=== PATIENT | male | born 1970 | race Two or more races ===

== ENCOUNTER 2023-06-28 08:15 | Outpatient (OUT) | payer OTHER, SELFPAY ==
--- NOTE | 2023-06-28 | CT_ITS ---
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 TECHNIQUE: Axial, Coronal, and Sagittal images were created without the administration of IV contrast material. Dose reduction techniques were achieved by using automated exposure control and/or adjustment of mA and/or kV according to patient size and/or use of iterative reconstruction technique. FINDINGS: LUNGS: No visible pulmonary disease. PLEURA: No mass, effusion, or pneumothorax. VASCULATURE: No abnormality. ABENA: No mass or pathologic adenopathy. MEDIASTINUM: No mass or pathologic adenopathy. CARDIAC: No enlargement, pericardial thickening, or significant calcification. AORTA: No aneurysm or dissection. CHEST WALL: No mass or axillary adenopathy BONES: No bone lesion or fracture. LIMITED ABDOMEN: No suspicious findings. Limited images of the upper abdomen. OTHER: Negative. CT/CT lung screening low-dose IMPRESSION: 1. Lung-RADS Category 1 Negative. No nodules and definitely benign nodules. Continue annual screening with LDCT in 12 months. Electronically authenticated by: KATY BAEZ Date: 06/30/2023 10:25
== END 2023-06-28 08:16 | disposition home or self-care (01) ==
LOC: CT 08:16
PROVIDERS: Visit Provider Internal Medicine
DX: Z87.891 Personal history of nicotine dependence (principal)
CPT/HCPCS: 71271

== ENCOUNTER 2024-07-10 08:03 | Outpatient (OUT) | payer OTHER, SELFPAY ==
--- NOTE | 2024-07-10 | CT_ITS ---
[address] [address] Patient Name: ALEXANDR CHACON MRN: [id number] date: 1970 Sex: M Assigned Patient Location: CT Current Patient Location: Accession/Order Number: [id number] Exam Date: 07/10/2024 08:10 Report Date: 07/11/2024 07:12 At the request of: PHIL BERGER Procedure: CT lung screening low-dose EXAMINATION: CT lung screening low-dose HISTORY: Nicotine dependent F17.219 COMPARISON: CT lung screening 06/28/2023 TECHNIQUE: Axial, Coronal, and Sagittal images were created without the administration of IV contrast material. Dose reduction techniques were achieved by using automated exposure control and/or adjustment of mA and/or kV according to patient size and/or use of iterative reconstruction technique. FINDINGS: LUNGS: No visible pulmonary disease. PLEURA: No mass, effusion, or pneumothorax. VASCULATURE: No abnormality. AEBNA: No mass or pathologic adenopathy. MEDIASTINUM: No mass or pathologic adenopathy. CARDIAC: No enlargement, pericardial thickening, or pericardial effusion. Coronary Artery calcifications: AORTA: No aneurysm or dissection. CHEST WALL: No mass or axillary adenopathy BONES: No bone lesion or fracture. LIMITED ABDOMEN: No suspicious findings. Limited images of the upper abdomen. OTHER: Negative. CT/CT lung screening low-dose IMPRESSION: 1. Lung-RADS Category 1 Negative. No nodules and definitely benign nodules. Continue annual screening with LDCT in 12 months. Electronically authenticated by: KATY BAEZ Date: 07/11/2024 07:12
--- OUTSIDE RECORDS SUMMARY | 2024-07-10 08:05 | XMS_ITS | CCD ---
Author Organization [facility] Care Team Providers Care Planned Giving Officer Name Role Phone Hari Ugarte Attending Unavailable Alee Waldrop Primary Care Unavailable Hari Ugarte Admitting Unavailable Hari Ugarte Attending Unavailable Alee Waldrop Primary Care Unavailable Alee Waldrop Primary Care Unavailable Jason Almonte Admitting Unavailable Gage, Jason Attending Unavailable ALEE WALDROP Primary Care Physician [phone] RISHI CARDOZO, DR DANIELLE Perkins Admitting Unavailmatteo BLACKWELL JR, DR DANIELLE Perkins Attending Unavailmatteo WALDROP, DR ALEE Bonilla Primary Care Unavailable PALMA, DR ALEE Bonilla Consulting Unavailable RISHI CARDOZO, DR DANIELLE Perkins Consulting Unavailmatteo CHAMPION, ZAHEER Consulting Unavailable PALMA, DR ALEE Bonilla Consulting Unavailable PALMA, DR ALEE Bonilla Primary Care Unavailable PALMA, DR ALEE Bonilla Admitting Unavailable PALMA, DR ALEE Bonilla Attending Unavailable BEAR, DR SADIA Kohli Consulting Unavailable SAMSA, PHIL Admitting Unavailable SAMSA, PHIL Attending Unavailable ZIHELLEN, DR KATY Kerr Consulting Unavailable PALMA, DR ALEE Bonilla Primary Care Unavailable SAMPHIL LOMAS Consulting Unavailable JENISE, DR ATWOOD Admitting Unavailable PAY, DR ATWOOD Attending Unavailable PAY, DR ATWOOD Consulting Unavailable PALMA, DR ALEE Bonilla Primary Care Unavailable COURTNEY CASEY Consulting Unavailable Claudio Rapp Primary Care Physician Claudio Rapp Attending Unavailable Claudio Rapp Attending Unavailable Claudio Rapp Attending Unavailable Claudio Rapp Attending Unavailable Claudio Rapp Admitting Unavailable Claudio Rapp Attending Unavailable Allergies Allergy Classification Reported Allergen(s) Allergy Type Date of Onset Reaction(s) Facility (1 source) No Known Medication Allergies; Translations: [No Known Medication Allergies] Propensity to adverse reactions (disorder) [facility] Repository Medications Current Medications Medication Drug Class(es) Dates Sig (Normalized) Sig (Original) Albuterol (Eqv-ProAir HFA) 90 mcg/inh inhalation aerosol (1 source) Start: 07-15-2023 take 2 puff(s) by inhalation every four hours as needed Albuterol (Eqv-ProAir HFA) 90 mcg/inh inhalation aerosol 2 puff(s), Inhalation, q4hr, Refill(s) 0, as needed Start Date: 07/15/23 Status: Ordered aspirin 81 mg delayed release oral tablet (2 sources) Platelet Aggregation Inhibitor, Nonsteroidal Anti-inflammatory Drug Start: 03-01-2022 take 1 mg by mouth once daily aspirin 81 mg Oral EC Tab mg tab(s), Oral, Daily, Refills(s) 0 Start Date: 03/01/22 Status: Ordered Breztri Aerosphere inhalation aerosol (2 sources) Start: 03-01-2022 Breztri Aerosphere inhalation aerosol Refill(s) 0 Start Date: 03/01/22 Status: Ordered 12 hr buPROPion hydrochloride 100 mg extended release oral tablet (1 source) Aminoketone Start: 07-15-2023 take 1 tablet by mouth once daily Wellbutrin SR 100 mg Tab-ER 100 mg = 1 tab(s), Oral, Daily, Refills(s) 0 Start Date: 07/15/23 Status: Ordered BuPROPion (Eqv-Wellbutrin SR) 150 mg/12 hours oral tablet, extended release (1 source) Start: 03-01-2022 BuPROPion (Eqv-Wellbutrin SR) 150 mg/12 hours oral tablet, extended release Refills(s) 0 Start Date: 03/01/22 Status: Ordered diclofenac sodium 75 mg delayed release oral tablet (2 sources) Nonsteroidal Anti-inflammatory Drug Start: 12-17-2022 take 1 tablet by mouth twice daily diclofenac sodium 75 mg Oral EC Tab 75 mg = 1 tab(s), Oral, BID, # 180 tab(s), Refills(s) 3, Pharmacy: [facility]/pharmacy #[id number], 178, cm, 03/05/22 9:16:00 EDT, Height/Length Dosing, 108.9, kg, 03/05/22 9:16:00 EDT, Weight Dosing Start Date: 12/17/22 Status: Ordered Start: 03-01-2022 diclofenac sod ium 75 mg Oral EC Tab Refills(s) 0 Start Date: 03/01/22 Status: Ordered esomeprazole 40 mg delayed release oral capsule (2 sources) Proton Pump Inhibitor Start: 03-01-2022 esomeprazole 40 mg Cap-EC Refills(s) 0 Start Date: 03/01/22 Status: Ordered Metoprolol (2 sources) beta-Adrenergic Eleuterio Start: 03-01-2022 Metoprolol tartrate 50 mg Tab Refills(s) 0 Start Date: 03/01/22 Status: Ordered Problems Active Problems Problem Classification Problem Date Documented Da te Episodic/Chronic Abdominal pain (4 sources) Left lower quadrant pain; Translations: [LEFT LOWER QUADRANT PAIN] Onset: 02-04-2022 Episodic Asthma (2 sources) Asthma 03-01-2022 Chronic Calculus of urinary tract (6 sources) Kidney stone; Translations: [Calculus of kidney] Onset: 03-05-2022 Episodic Chronic obstructive pulmonary disease and bronchiectasis (2 sources) Emphysema, unspecified; Translations: [Chronic obstructive lung disease] Onset: 05-25-2021 07-15-2023 Chronic Epilepsy; convulsions (1 source) Epilepsy 03-05-2022 Chronic Essential hypertension (2 sources) Hypertensive disorder 03-05-2022 Chronic Nausea and vomiting (1 source) Nausea; Translations: [NAUSEA] Onset: 02-06-2022 Episodic Osteoarthritis (1 source) Osteoarthritis of knee 07-15-2023 Chronic Other aftercare (1 source) terminal press operator (current) use of aspirin; Translations: [LONGTERM CURRENT USE OF ASPIRIN] Onset: 02-06-2022 Episodic Other aftercare (1 source) Other correction (current) drug therapy; Translations: [OTH TELEGRAPH DISPATCHER CURRENT DRUG THERAPY] Onset: 02-06-2022 Episodic Other diseases of kidney and ureters (4 sources) Ischemia and infarction of kidney; Translations: [ISCHEMIA AND INFARCTION OF KIDNEY] Onset: 05-01-2022 Episodic Other nutritional; endocrine; and metabolic disorders (1 source) Body mass index 30+ - obesity 01-22-2023 Chronic Other screening for suspected conditions (not mental disorders or infectious disease) (3 sources) Abnormal findings on diagnostic imaging of urinary organs; Translations: [Abnormal radiologic findings on diagnostic imaging of left kidney] Onset: 03-05-2022 Episodic Phlebitis; thrombophlebitis and thromboembolism (1 source) Embolism and thrombosis of renal vein; Translations: [EMBOLISM AND THROMBOSIS RENAL VEIN] Onset: 05-06-2022 Chronic Residual codes; unclassified (1 source) Family history of cancer; Translations: [Family history of malignant neoplasm of prostate] Onset: 03-05-2022 Episodic Residual codes; unclassified (2 sources) Family history of prostate cancer 03-05-2022 Episodic Screening and history of mental health and substance abuse codes (1 source) Personal history of nicotine dependence; Translations: [PERSONAL HISTORY OF NICOTINE DEPEND] Onset: 02-06-2022 Episodic Spondylosis; intervertebral disc disorders; other back problems (2 sources) Sciatica 03-01-2022 Episodic Substance-related disorders (2 sources) Smoker 03-01-2022 Chronic Comment on above: Added secondary to d ocumentation in Social History. Unclassified (1 source) M23.91 - Unspecified internal derangement of right knee; Translations: [M23.91 - Unspecified internal derangement of right knee] Onset: 11-20-2018 Unclassified (1 source) M25.561 - Pain in right knee; Translations: [M25.561 - Pain in right knee] Onset: 11-02-2018 Unclassified (1 source) Patient encounter status 07-15-2023 Past or Other Problems Problem Classification Problem Date Documented Da te Episodic/Chronic Other lower respiratory disease (4 sources) Other nonspecific abnormal finding of lung field; Translations: [OTH NONSPECIFIC ABN FIND LNG FIELD] Onset: 05-19-2021 Episodic Results Test Name Value Interpretation Reference Range Facility Ambulatory Visit Summaryon 0 09-15-2023 Ambulatory Visit Summary ANN CHACON :1970 Visit Date:09/15/2023 Ambulatory Visit Instructions Your Diagnosis BMI 33.0-33.9,adult Class 1 obesity due to excess calories in adult Smoker Acute URI Cough Fever Your Care Team Attending Physician - Claudio Rapp MD Primary Care Physician - Claudio Rapp MD This Is Your Medications List albuterol (Albuterol (Eqv-ProAir HFA) 90 mcg/inh inhalation aerosol) aspirin (aspirin 81 mg Oral EC Tab) buPROPion (Wellbutrin SR 100 mg Tab-ER) budesonide/formoterol/ glycopyrrolate (Breztri Aerosphere inhalation aerosol) diclofenac (diclofenac sodium 75 mg Oral EC Tab) esomeprazole (esomeprazole 40 mg Cap-EC) metoprolol (Metoprolol tartrate 50 mg Tab) Procedures Performed Colonoscopy (2008), Operation on meniscus of the knee. Discharge Vitals Temperature (Oral) 36.7 ?C Heart Rate (Peripheral) 80 Respiratory Rate 16 Blood Pressure 124/80 Height 178 cm Height 70 in Weight 107.3 kg Weight 236.06 lb BMI 33.87 Medications What How Much When Instructions Unchanged albuterol (Albuterol (Eqv-ProAir HFA) 90 mcg/ inh inhalation aerosol) 2 Puffs Inhalation Every 4 hours as needed Unchanged aspirin (aspirin 81 mg Oral EC Tab) By Mouth Every day Unchanged budesonide/ formoterol/ glycopyrrolate (Breztri Aerosphere inhalation aerosol) Unchanged buPROPion (Wellbutrin SR 100 mg Tab-ER) 1 Tablets By Mouth Every day Unchanged diclofenac (diclofenac sodium 75 mg Oral EC Tab) 1 Tablets By Mouth 2 times a day Unchanged esomeprazole (esomeprazole 40 mg Cap-EC) 1 Capsules By Mouth Every day Unchanged metoprolol (Metoprolol tartrate 50 mg Tab) 1 Tablets By Mouth Every day Allergies No Known Medication Allergies Problems Ongoing - Any problem that you are currently receiving treatment for. Abnormal CT scan, kidney Acute URI Asthma BMI 33.0-33.9,adult COPD without exacerbation Family history of prostate cancer Hypertension OA (osteoarthritis) of knee Physical exam Sciatica Smoker Patient Survey You may receive a survey via text or e-mail asking about your office visit. Please share your experience with us by completing your survey. We appreciate your feedback and thank you for choosing us for your care. Tania Devine [facility] Family Medicine Office/Clini c Noteon 09-15-2023 Family Medicine Office/Clinic Note HPI Staff Ann is a 53 year old male presenting for acute sick vist Acute: sinus infection Respiratory C/O: Onset: 09/12 Body aches: yes Chest congestion: no Chills: yes off and on Cough: yes Sputum production: no Sore throat: no Ear complaints: no Eye itching/watering: no Fever: yes this morning 100.2 Headache: no Nasal congestion: yes Nasal discharge: yes clear and bloody having severe bloody noses Poor appetite: no Reduced activity: no Sinus pain/pressure: yes Sneezing: yes Wheezing: no Ill contacts: yes his boss was sick Remedies tried: tylenol, dayquil and nyquil Questions/Concerns: pt getting bloody noses, Tested for covid on 09/12/23 was negative History of Present Illness See staff HPI. Review of Systems PHQ Score Initial Depression Screen Score: 0 SCORE Physical Exam Vitals & Measurements T: 36.7 ?C(Oral) HR: 80(Peripheral) RR: 16 BP: 124/80 SpO2: 97% HT: 70 in HT: 178 cm WT: 107.3 kg WT: 236.06 lb BMI: 33.87 General: alert, no acute distress ENMT: oral mucosa moist, Cardiovascular: regular rate and rhythm, normal peripheral perfusion Respiratory: Lungs CTA, respirations non labored Extremities: no deformity, no trauma Neurological: oriented x 4, LOC appropriate for age, CN II-XII intact, motor strength equal & normal bilaterally, speech normal Abdomen: Soft, Nontender, Non-distended, + BS Assessment/Plan 1. Acute URI (J06.9: Acute upper respiratory infection, unspecified) - Covid negative again - Could be RSV vs flu ect - Will do medrol - OTC meds as needed - IF no improvement, we will do Azithromycin - Humidified air to help with nose bleeds. 2. BMI 33.0-33.9,adult (Z68.33: Body mass index [BMI] 33.0-33.9, adult) - BMI education given 3. Class 1 obesity due to excess calories in adult (E66.09: Other obesity due to excess calories) - Diet and exercise advised 4. Smoker (F17.200: Nicotine dependence, unspecified, uncomplicated) - Please stop smoking. Cough (R05.9: Cough, unspecified) Ordered: Rapid COVID POC 10047 Fever (R50.9: Fever, unspecified) Ordered: Rapid COVID POC 04377 Follow-up No qualifying data available Problem List/Past Medical History Ongoing Abnormal CT scan, kidney Acute URI Asthma BMI 33.0-33.9,adult COPD without exacerbation Family history of prostate cancer Hypertension OA (osteoarthritis) of knee Physical exam Sciatica Smoker Historical No qualifying data Procedure/Surgical History Colonoscopy (2008), Operation on meniscus of the knee. Medications Albuterol (Eqv-ProAir HFA) 90 mcg/inh inhalation aerosol, 2 puff(s), Inhalation, q4hr aspirin 81 mg Oral EC Tab, Oral, Daily Breztri Aerosphere inhalation aerosol diclofenac sodium 75 mg Oral EC Tab, 75 mg= 1 tab(s), Oral, BID, 3 refills esomeprazole 40 mg Cap-EC, 40 mg= 1 cap(s), Oral, Daily Metoprolol tartrate 50 mg Tab, 50 mg= 1 tab(s), Oral, Daily Wellbutrin SR 100 mg Tab-ER, 100 mg= 1 tab(s), Oral, Daily Allergies No Known Medication Allergies Social History Alcohol - Medium Risk, 01/22/2023 Current, 1-2 times per week, Household alcohol concerns: No., 01/22/2023 Substance Abuse - Denies Substance Abuse, 01/22/2023 Household substance abuse concerns: No., 01/22/2023 Tobacco - Medium Risk, 01/22/2023 10 or more cigarettes (1/2 pack or more)/day in last 30 days Tobacco Use:. Never Smokeless Tobacco Use:. Cigarettes, Yes, 09/15/2023 Family History Heart disease: Father. High blood pressure: Father. High cholesterol: Father. Lung cancer: Brother. Prostate cancer: Brother. Immunizations Vaccine Date Status Comments influenza virus vaccine, inactivated - Not Given Postpone due to refusal SARS-CoV-2 (COVID-19) mRNA BNT-162b2 vax 12/12/2020 Recorded SARS-CoV-2 (COVID-19) mRNA BNT-162b2 vax 11/20/2020 Recorded Normal [facility] Comment on above: Result Comment: Elec tronically Signed By: Dionte NAYLOR, Claudio Kam.br\Date and Time Signed: 09/15/23 18:46 EST Auto Diffon 07-16-2023 Basophils/100 WBC (Bld) 0.8 % Normal 0.0-2.0 [facility] Comment on above: Order Comment: Order Added by Discern Expert. Performed By: #### 2 978438, 5966774, 34744711, 2751342, 7405961, 67996081 #### [facility] [address] [place] [address]184 Basophils/Leukocy perlita Auto (Bld) [Pure # fraction] 0.1 E9/L Normal 0.0-0.2 [facility] Comment on above: Order Comment: Order Added by Discern Expert. Performed By: #### 2 138375, 5692381, 37018433, 8911329, 7937163, 21111371 #### [facility] [address] [place] [address] 41941 Eosinophils/100 WBC (Bld) 2.6 % Normal 0.0-8.0 [facility] Comment on above: Order Comment: Order Added by Discern Expert. Performed By: #### 2 093027, 2246330, 36858540, 2038867, 8038834, 11052086 #### [facility] [address] [place] [address] 95195 Eosinophils/Leuko cytes Auto (Bld) [Pure # fraction] 0.3 E9/L Normal 0.0-0.5 [facility] Comment on above: Order Comment: Order Added by Discern Expert. Performed By: #### 2 801588, 3681500, 31559382, 7546714, 1379824, 78950871 #### [facility] [address] [place] [address] 37926 Lymphocytes/100 WBC (Bld) 34.2 % Normal 14.0-50.0 [facility] Comment on above: Order Comment: Order Added by Discern Expert. Performed By: #### 2 674243, 0580094, 51748056, 3102693, 3101563, 93582102 #### [facility] [address] [place] [address] 55634 Lymphocytes/Leuko cytes Auto (Bld) [Pure # fraction] 3.7 E9/L Normal 1.0-4.0 [facility] Comment on above: Order Comment: Order Added by Discern Expert. Performed By: #### 2 480071, 4030880, 31406456, 2975448, 3543853, 94360380 #### [facility] [address] [place] [address] Monocytes/100 WBC (Bld) 5.1 % Normal 4.0-14.0 [facility] Comment on above: Order Comment: Order Added by Discern Expert. Performed By: #### 2 408676, 9677522, 03877087, 5510493, 2920791, 82271261 #### [facility] [address] [place] [address] Monocytes/Leukocy perlita Auto (Bld) [Pure # fraction] 0.5 E9/L Normal 0.2-1.0 [facility] Comment on above: Order Comment: Order Added by Discern Expert. Performed By: #### 2 018670, 6374741, 44425443, 8305880, 3372583, 65531338 #### [facility] [address] [place] [address] 30454 Neutrophils/100 WBC (Bld) 57.3 % Normal 36.0-75.0 [facility] Comment on above: Order Comment: Order Added by Discern Expert. Performed By: #### 2 952273, 3887952, 60788426, 7730432, 0021402, 33410099 #### [facility] [address] [place] [address] 10685 Neutrophils/Leuko cytes Auto (Bld) [Pure # fraction] 6.1 E9/L Normal 2.0-7.5 [facility] Comment on above: Order Comment: Order Added by Discern Expert. Performed By: #### 2 004645, 0928654, 55629222, 3828442, 6405896, 64652181 #### [facility] [address] [place] [address] 10991 CBC w/ Auto Diffon 3 Erythrocyte distribution width (RBC) [Ratio] 15.2 % High 10.9-14.2 [facility] Comment on above: Performed By: #### 2 883961, 2805765, 99920542, 1717741, 8343524, 71696950 #### [facility] [address] [place] [address] 45922 Hematocrit (Bld) [Volume fraction] 40.9 % Normal 37.7-49.0 [facility] Comment on above: Performed By: #### 2 602964, 2687571, 87394166, 7888617, 4517758, 27894864 #### [facility] [address] [place] [address] Hemoglobin (Bld) [Mass/Vol] 13.4 g/dL Low 13.5-17.5 [facility] Comment on above: Performed By: #### 2 034914, 5992436, 37735405, 5733579, 1616154, 94253834 #### [facility] [address] [place], [place] [address] MCH (RBC) [Entitic mass] 30.8 pg Normal 27.0-34.0 [facility] Comment on above: Performed By: #### 2 621285, 1119642, 90576276, 0264523, 6123823, 72962387 #### [facility] [address] [place], [place] [address] MCHC (RBC) [Mass/Vol] 32.7 g/dL Normal 31.4-36.0 [facility] Comment on above: Performed By: #### 2 818134, 0227653, 86686433, 4061121, 1872114, 59776267 #### [facility] [address] [place], [place] [address] MCV (RBC) [Entitic vol] 94.0 fL Normal 80.0-100.0 [facility] Comment on above: Performed By: #### 2 812282, 5022708, 88586204, 9970325, 1094839, 40579948 #### [facility] [address] [place], [place] [address] Platelet mean volume (Bld) [Entitic vol] 8.9 fL Normal 6.4-10.8 [facility] Comment on above: Performed By: #### 2 099804, 7367163, 70038376, 1934028, 0426950, 66004883 #### [facility] [address] [place] [address] Platelets (Bld) [#/Vol] 291.0 E9/L Normal 150.0-500.0 [facility] Comment on above: Performed By: #### 2 968023, 7545986, 08990014, 5093515, 4873295, 02418488 #### [facility] [address] [place] [address] RBC (Bld) [#/Vol] 4.4 E12/L Normal 4.3-5.9 [facility] Comment on above: Performed By: #### 2 367933, 8867687, 84976269, 6972141, 2993213, 97984192 #### [facility] [address] [place] [address] 87323 WBC corrected for nucl RBC Auto (Bld) [#/Vol] 10.7 E9/L Normal 4.0-11.0 [facility] Comment on above: Performed By: #### 2 296013, 6736011, 68860525, 2582678, 2155197, 44785922 #### [facility] [address] [place] [address] CMPon 07-16-2023 Albumin [Mass/Vol] 4.4 g/dL Normal 3.3-5.0 [facility] Comment on above: Performed By: #### 2 950309, 2369555, 71127284, 0883130, 9630442, 51556103 #### [facility] [address] [place] [address] Albumin/Globulin (S) [Mass conc ratio] 1.3 Normal 1.1-2.2 [facility] Comment on above: Performed By: #### 2 328072, 5874538, 21514250, 2971452, 2888321, 12759277 #### [facility] [address] [place] [address] ALP [Catalytic activity/Vol] 94 Int._Unit/L Normal 21-98 [facility] Comment on above: Performed By: #### 2 654657, 3654480, 14288772, 7307741, 2335154, 52066723 #### [facility] [address] [place] [address] ALT No additional P-5'-P [Catalytic activity/Vol] 41 Int._Unit/L Normal 6-46 [facility] Comment on above: Performed By: #### 2 335571, 8530946, 79557822, 8595514, 4207931, 69102277 #### [facility] [address] [place] [address] Anion gap [Moles/Vol] 10 mmol/L Normal 6-16 [facility] Comment on above: Performed By: #### 2 455166, 1707095, 63341693, 2856297, 0119717, 01202862 #### [facility] [address] [place] [address] AST [Catalytic activity/Vol] 40 Int._Unit/L Normal 5-43 [facility] Comment on above: Performed By: #### 2 218707, 0752877, 90657215, 5103339, 6303025, 20282003 #### [facility] [address] [place] [address] Bilirubin [Mass/Vol] 0.4 mg/dL Normal 0.0-1.1 [facility] Comment on above: Performed By: #### 2 875951, 6748310, 36821888, 2050901, 9973403, 86553924 #### [facility] [address] [place] [address] Calcium [Mass/Vol] 9.6 mg/dL Normal 8.9-11.1 [facility] Comment on above: Performed By: #### 2 839598, 4372344, 71434356, 3455970, 4639241, 43268376 #### [facility] [address] [place] [address] Chloride [Moles/Vol] 110 mmol/L Normal 101-111 [facility] Comment on above: Performed By: #### 2 554465, 7176792, 36532279, 2291093, 3240207, 14639257 #### [facility] [address] [place] [address] CO2 [Moles/Vol] 22 mmol/L Normal 21-[address] [facility] Comment on above: Performed By: #### 2 309853, 4455731, 61812887, 9546715, 6330524, 11984216 #### [facility] [address] [place] [address] Creatinine [Mass/Vol] 1.3 mg/dL Normal 0.5-1.3 [facility] Comment on above: Performed By: #### 2 149882, 8752441, 84553795, 3283775, 8976998, 36452949 #### [facility] [address] [place] [address] Globulin (S) [Mass/Vol] 3.5 g/dL Normal 1.4-4.0 [facility] Comment on above: Performed By: #### 2 757522, 7985949, 87421519, 1662320, 2290797, 53380016 #### [facility] [address] [place] [address] Glucose [Mass/Vol] 98 mg/dL Normal 55-199 [facility] Comment on above: Result Comment: If t his glucose result represents a fasting glucose, interpretation should refer to the following reference range: 55-99 mg/dL Performed By: #### 2 626080, 7199314, 51861538, 4715228, 8140593, 44319305 #### [facility] [address] [place] [address] Potassium [Moles/Vol] 3.9 mmol/L Normal 3.5-5.3 [facility] Comment on above: Performed By: #### 2 195105, 1486869, 94639973, 7889223, 3384344, 70827913 #### [facility] [address] [place] [address] Protein [Mass/Vol] 7.9 g/dL High 6.0-7.8 [facility] Comment on above: Performed By: #### 2 680853, 8662830, 17893766, 3226578, 0401433, 31911921 #### [facility] [address] [place] [address] Sodium [Moles/Vol] 138 mmol/L Normal 135-145 [facility] Comment on above: Performed By: #### 2 380427, 6987378, 43029433, 1809610, 1529406, 76308264 #### [facility] [address] [place] [address] Urea nitrogen [Mass/Vol] 32 mg/dL High 5-21 [facility] Comment on above: Performed By: #### 2 [id number], [id number], [id number], [id number], [id number], [id number] #### [facility] [address] [place] [address] Urea nitrogen/Creatini ne [Mass ratio] 25 No Units High 10-20 [facility] Comment on above: Performed By: #### 2 [id number], [id number], [id number], [id number], [id number], [id number] #### [facility] [address] [place] [address] Lipid Panelon 07-16-2023 Cholesterol [Mass/Vol] 186 mg/dL Normal 120-200 [facility] Comment on above: Performed By: #### 2 [id number], [id number], [id number], [id number], [id number], [id number] #### [facility] [address] [place] [address] Cholesterol in HDL [Mass/Vol] 23 mg/dL Invalid Interpretation Code [facility] Comment on above: Result Comment: HDL > or equal to 60 mg/dL: Low cardiovascular risk HDL < 40 mg/dL : High cardiovascular risk Performed By: #### 2 [id number], [id number], [id number], [id number], [id number], [id number] #### [facility] [address] [place] [address] Cholesterol in LDL [Mass/Vol] 117 mg/dL Normal <=129 [facility] Comment on above: Performed By: #### 2 [id number], [id number], [id number], [id number], [id number], [id number] #### [facility] [address] [place] [address] Cholesterol in VLDL [Mass/Vol] 75 mg/dL High 7-40 [facility] Comment on above: Performed By: #### 2 [id number], [id number], [id number], [id number], [id number], [id number] #### [facility] [address] [place] [address] Triglyceride [Mass/Vol] 375 mg/dL High <=149 [facility] Comment on above: Performed By: #### 2 [id number], [id number], [id number], [id number], [id number], [id number] #### [facility] [address] [place] [address] PSA Screen, Totalon 07-16-20 23 Prostate specific Ag [Mass/Vol] 0.2 ng/mL Normal 0.1-3.5 [facility] Comment on above: Result Comment: The concentration of PSA determined by different manufacturers can vary due to differences in assay methods and reagent specificity. Values obtained from different assay methods cannot be used interchangeably. The methodology used for this result was chemiluminescence using [employer]'s Access Hybritech PSA reagent. Performed By: #### 2 900990, [id number], [id number], [id number], [id number], [id number] #### [facility] [address] [place] [address] eGFRon 07-16-2023 GFR/1.73 sq M.predicted among non-blacks MDRD (S/P/Bld) [Vol rate/Area] 65 mL/min/1.73 m2 Normal >=59 [facility] Comment on above: Order Comment: Order added by Discern Expert. Result Comment: [employer] Project Manager cierra kidney disease could be indicated at eGFR's of less than 60 mL/min/1.73m2. Kidney failure is indicated at less than 15 mL/min/1.73m2. Performed By: #### 2 [id number], [id number], [id number], [id number], [id number], [id number] #### [facility] [address] [place] [address] Ambulatory Visit Summaryon 09-14-2022 Ambulatory Visit Summary ANN CHACON :1970 Visit Date:07/15/2023 Ambulatory Visit Instructions Your Diagnosis Physical exam Epilepsy Hypertension BMI 33.0-33.9,adult Class 1 obesity due to excess calories in adult Abnormal CT scan, kidney Smoker COPD without exacerbation OA (osteoarthritis) of knee Your Care Team Attending Physician - Claudio Rapp MD Primary Care Physician - Claudio Rapp MD This Is Your Medications List albuterol (Albuterol (Eqv-ProAir HFA) 90 mcg/inh inhalation aerosol) aspirin (aspirin 81 mg Oral EC Tab) buPROPion (Wellbutrin SR 100 mg Tab-ER) budesonide/formoterol/ glycopyrrolate (Breztri Aerosphere inhalation aerosol) diclofenac (diclofenac sodium 75 mg Oral EC Tab) esomeprazole (esomeprazole 40 mg Cap-EC) metoprolol (Metoprolol tartrate 50 mg Tab) Procedures Performed Colonoscopy (2008), Operation on meniscus of the knee. Discharge Vitals Temperature (Temporal Artery) 37.2 ?C Heart Rate (Peripheral) 68 Respiratory Rate 14 Blood Pressure 116/74 Height 178 cm Height 70 in Weight 106.3 kg Weight 233.86 lb BMI 33.55 Medications What How Much When Instructions Unchanged albuterol (Albuterol (Eqv-ProAir HFA) 90 mcg/ inh inhalation aerosol) 2 Puffs Inhalation Every 4 hours as needed Unchanged aspirin (aspirin 81 mg Oral EC Tab) By Mouth Every day Unchanged budesonide/ formoterol/ glycopyrrolate (Breztri Aerosphere inhalation aerosol) Unchanged buPROPion (Wellbutrin SR 100 mg Tab-ER) 1 Tablets By Mouth Every day Unchanged diclofenac (diclofenac sodium 75 mg Oral EC Tab) 1 Tablets By Mouth 2 times a day Unchanged esomeprazole (esomeprazole 40 mg Cap-EC) Unchanged metoprolol (Metoprolol tartrate 50 mg Tab) Medications and Immunizations Administered Not Given influenza virus vaccine, inactivated, Postpone due to refusal Allergies No Known Medication Allergies Problems Ongoing - Any problem that you are currently receiving treatment for. Abnormal CT scan, kidney Asthma BMI 33.0-33.9,adult COPD without exacerbation Family history of prostate cancer Hypertension OA (osteoarthritis) of knee Physical exam Sciatica Smoker Patient Survey You may receive a survey via text or e-mail asking about your office visit. Please share your experience with us by completing your survey. We appreciate your feedback and thank you for choosing us for your care. Normal [facility] Consultation Noteon 07-15-20 Consultation Note [id number] TIFF Normal [facility] Family Medicine Office/Clini c Noteon 07-15-2023 Family Medicine Office/Clinic Note HPI Staff Ann is a 53 year old male presenting to establish care Establish Care: History: Asthma, Epilepsy, HTN, Sciatica Last provider: [facility] Any recent labs: none Health Maintenance UTD: Colonoscopy: 2008 PSA: follows with urology Flu: refused Acute: Current issues/complaints: none History of Present Illness - Pt is here for CPE and establish care - No issues at this time. - Still smokes and has been diagnosed with COPD. Review of Systems PHQ Score Initial Depression Screen Score: 0 Physical Exam Vitals & Measurements T: 37.2 ?C(Temporal Artery) HR: 68(Peripheral) RR: 14 BP: 116/74 SpO2: 97% HT: 70 in HT: 178 cm WT: 106.3 kg WT: 233.86 lb BMI: 33.55 General: alert, no acute distress ENMT: oral mucosa moist, Cardiovascular: regular rate and rhythm, normal peripheral perfusion Respiratory: Lungs CTA, respirations non labored Extremities: no deformity, no trauma Neurological: oriented x 4, LOC appropriate for age, CN II-XII intact, motor strength equal & normal bilaterally, speech normal Abdomen: Soft, Nontender, Non-distended, + BS Assessment/Plan 1. Physical exam (Z00.00: Encounter for general adult medical examination without abnormal findings) Anticipatory guidance given. Discussed diet and exercise. Discussed immunizations. Ordered: CBC w/ Auto Diff Comprehensive Metabolic Panel Lipid Panel PSA Screen, Total 2. Epilepsy (G40.909: Epilepsy, unspecified, not intractable, without status epilepticus) - Pt denies any hx of such Ordered: CBC w/ Auto Diff Comprehensive Metabolic Panel Lipid Panel PSA Screen, Total 3. Hypertension (I10: Essential (primary) hypertension) - At goal today. - No issues Ordered: CBC w/ Auto Diff Comprehensive Metabolic Panel Lipid Panel PSA Screen, Total 4. BMI 33.0-33.9,adult (Z68.33: Body mass index [BMI] 33.0-33.9, adult) - BMI education given Ordered: CBC w/ Auto Diff Comprehensive Metabolic Panel Lipid Panel PSA Screen, Total 5. Class 1 obesity due to excess calories in adult (E66.09: Other obesity due to excess calories) - Diet and exercise advised and discussed Ordered: CBC w/ Auto Diff Comprehensive Metabolic Panel Lipid Panel PSA Screen, Total 6. Abnormal CT scan, kidney (R93.422: Abnormal radiologic findings on diagnostic imaging of left kidney) - Reviewed - Two arteries to the L kidney Ordered: CBC w/ Auto Diff Comprehensive Metabolic Panel Lipid Panel PSA Screen, Total 7. Smoker (F17.200: Nicotine dependence, unspecified, uncomplicated) - Please stop smoking. - On wellbutrin to help Ordered: CBC w/ Auto Diff Comprehensive Metabolic Panel Lipid Panel PSA Screen, Total 8. COPD without exacerbation (J44.9: Chronic obstructive pulmonary disease, unspecified) - Stable - Albuterol as needed Ordered: CBC w/ Auto Diff Comprehensive Metabolic Panel Lipid Panel PSA Screen, Total 9. OA (osteoarthritis) of knee (M17.9: Osteoarthritis of knee, unspecified) - Seeing Ortho for injections Follow-up No qualifying data available Problem List/Past Medical History Ongoing Abnormal CT scan, kidney Asthma BMI 33.0-33.9,adult COPD without exacerbation Family history of prostate cancer Hypertension OA (osteoarthritis) of knee Physical exam Sciatica Smoker Historical No qualifying data Procedure/Surgical History Colonoscopy (2008), Operation on meniscus of the knee. Medications Albuterol (Eqv-ProAir HFA) 90 mcg/inh inhalation aerosol, 2 puff(s), Inhalation, q4hr aspirin 81 mg Oral EC Tab, Oral, Daily Breztri Aerosphere inhalation aerosol diclofenac sodium 75 mg Oral EC Tab, 75 mg= 1 tab(s), Oral, BID, 3 refills esomeprazole 40 mg Cap-EC Metoprolol tartrate 50 mg Tab Wellbutrin SR 100 mg Tab-ER, 100 mg= 1 tab(s), Oral, Daily Allergies No Known Medication Allergies Social History Alcohol - Medium Risk, 01/22/2023 Current, 1-2 times per week, Household alcohol concerns: No., 01/22/2023 Substance Abuse - Denies Substance Abuse, 01/22/2023 Household substance abuse concerns: No., 01/22/2023 Tobacco - Medium Risk, 01/22/2023 10 or more cigarettes (1/2 pack or more)/day in last 30 days Tobacco Use:. Never Smokeless Tobacco Use:. Cigarettes, Yes, 07/15/2023 Family History Heart disease: Father. High blood pressure: Father. High cholesterol: Father. Lung cancer: Brother. Prostate cancer: Brother. Immunizations Vaccine Date Status Comments influenza virus vaccine, inactivated - Not Given Postpone due to refusal SARS-CoV-2 (COVID-19) mRNA BNT-162b2 vax 12/12/2020 Recorded SARS-CoV-2 (COVID-19) mRNA BNT-162b2 vax 11/20/2020 Recorded Normal [facility] Comment on above: Result Comment: Elec tronically Signed By: Dionte NAYLOR, Claudio Jackson\.br\Date and Time Signed: 07/15/23 16:27 EST Consultation Noteon 07-10-20 Consultation Note [id number] 0TIFF Normal [facility] MRA ABDOMEN WO CONon 05-06- 022 MRA ABDOMEN WO CON EXAMINATION: MRA ABDOMEN WO CON HISTORY: Ischemia of kidney COMPARISON: 03/26/2022 TECHNIQUE: A comprehensive examination was performed of the kidneys utilizing a variety of imaging planes and imaging parameters to optimize visualization of suspected pathology. In addition, magnetic resonance imaging of the aorta, renal arteries and renal veins was also performed. FINDINGS: LIVER: No enlargement, atrophy, abnormal density, or significant focal lesion. BILIARY: No visible dilatation or calcification. PANCREAS: No lesion, fluid collection, ductal dilatation, or atrophy. SPLEEN: No enlargement or focal lesion. KIDNEYS: Slight contour deformity lateral left renal midpole likely representing chronic scarring RENAL ARTERIES: Single right renal artery. Two left renal arteries with a single origin, branching immediately post ostial. No filling defects to suggest thrombus RENAL VEINS: No obstruction or anomaly. ADRENALS: No mass or enlargement. AORTA/VASCULAR: No aneurysm or dissection. RETROPERITONEUM: No mass or adenopathy. BOWEL/MESENTERY: No visible mass, obstruction, or bowel wall thickening. ABDOMINAL WALL: No mass or hernia. BONES: No bony lesion or fracture. LUNG BASES: No visible pleural disease. Lung bases not well assessed with MRI. OTHER: Negative. 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 Original Report Indication: Left lower quadrant pain. Comparison: 02/04/2022. Procedure: Axial images were made from the diaphragms through the symphysis pubis. Oral contrast Omnipaque was given prior to scanning. 100 mL Omnipaque 300 Intravenous contrast was given. Dose reduction techniques were achieved by using automated exposure control and/or adjustment of mA and/or kV according to patient size and/or use of iterative reconstruction technique. Findings: Liver/Biliary System: Diffuse fatty infiltration of the liver. No liver masses. No intra or extrahepatic biliary dilatation. No gallstones or cholecystitis. Pancreas/Spleen: No pancreatic masses. Pancreatic duct is not dilated. No splenomegaly or splenic lesions. Kidneys/Adrenals: Diffuse hypodensity in left kidney which was seen on 02/04/2022 exam has been significantly increased in size in the interval. Currently only couple of small hypodensities are seen in mid pole of the left kidney. Some left renal cortical thinning has been development in the interval. 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 Other possibility is improving left pyelonephritis. Of note, 2 left renal arteries identified sharing the same origin from aorta with questionable thrombosis involving the superior left renal artery (coronal LOC:25.60). I would recommend CTA/MRA of the renal arteries for further assessment. Normal right nephrogram. No renal or ureteral stones are seen. No hydronephrosis or hydroureter. No adrenal masses. Aorta/Vessels: No evidence of aortic aneurysm. Patent IVC, hepatic veins, renal veins and portal venous system. Bowel/Fluid/Nodes: No bowel dilatation. No bowel wall thickening. Sigmoid diverticulosis with no evidence of diverticulitis. No ascites or fluid collections. No adenopathy. Lung bases: Clear. Other findings: No aggressive osseous lesions are seen. Pelvis: No pelvic masses or adenopathy. Bladder, seminal vesicles and prostate grossly unremarkable. No free fluid seen in the pelvis. Other Findings: No aggressive osseous lesions are seen. Impression: 1. Diffuse hypodensity in left kidney which was seen on 02/04/2022 exam has been significantly decreased in size in the interval. Currently only couple of small hypodensities are seen in mid pole of the left kidney. Some left renal cortical thinning has been development in the interval. 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 Other possibility is improving left pyelonephritis. 2. Two left renal arteries identified sharing the same origin from aorta with questionable thrombosis involving the superior left renal artery. I would recommend CTA/MRA of the renal arteries for further assessment. 3. Diffuse fatty infiltration of the liver. Sigmoid diverticulosis with no evidence of diverticulitis. Normal [facility] CBC AUTO DIFFon 02-04-2022 BASO # 0.1 103/ul Normal 0.0-0.1 [facility] Comment on above: Performed By: #### C BC #### [facility] [address] [address] [address] Steffany Angel Basophils/100 WBC (Bld) 0.8 % Normal 0.2-2.0 [facility] Comment on above: Performed By: #### C BC #### [facility] [address] [address] [address] Steffany Angel EO # 0.3 103/ul Normal 0.0-0.7 [facility] Comment on above: Performed By: #### C BC #### [facility] [address] [address] [address] Steffany Angel Eosinophils/100 WBC (Bld) 3.1 % Normal 0.9-7.0 [facility] Comment on above: Performed By: #### C BC #### [facility] [address] [place] [address] Dr. Steffany Angel Erythrocyte distribution width (RBC) [Ratio] 13.7 % Normal 11.0-15.0 [facility] Comment on above: Performed By: #### C BC #### [facility] [address] [place] [address] Dr. Steffany Angel Hematocrit (Bld) [Volume fraction] 40.3 % Critically low 42.0-54.0 [facility] Comment on above: Performed By: #### C BC #### [facility] [address] [place] [address] Dr. Steffany Angel Hemoglobin (Bld) [Mass/Vol] 13.6 g/dL Critically low 14.0-18.0 [facility] Comment on above: Performed By: #### C BC #### [facility] [address] [place] [address] Dr. Steffany Angel IG # 0.02 10e3/ul Normal 0.00-0.03 [facility] Comment on above: Performed By: #### C BC #### [facility] [address] [place] [address] Dr. Steffany Angel IG % 0.2 % Normal 0.0-0.5 [facility] Comment on above: Performed By: #### C BC #### [facility] [address] [place] [address] Dr. Steffany Angel LYMPH # 2.3 103/ul Normal 1.2-3.8 [facility] Comment on above: Performed By: #### C BC #### [facility] [address] [place] [address] Dr. Steffany Angel Lymphocytes/100 WBC (Bld) 22.5 % Normal 20.5-60.0 [facility] Comment on above: Performed By: #### C BC #### [facility] [address] [place] [address] Dr. Steffany Angel MANUAL DIFF REQ NO Normal [facility] Comment on above: Performed By: #### C BC #### [facility] [address] [place] [address] Dr. Steffany Angel MCH (RBC) [Entitic mass] 31.6 pg Normal 25.9-34.0 [facility] Comment on above: Performed By: #### C BC #### [facility] [address] [place] [address] Dr. Steffany Angel MCHC (RBC) [Mass/Vol] 33.7 g/dL Normal 29.9-35.2 [facility] Comment on above: Performed By: #### C BC #### [facility] [address] [place] [address] Dr. Steffany Angel MCV (RBC) [Entitic vol] 93.5 fL Normal 80.0-94.0 [facility] Comment on above: Performed By: #### C BC #### [facility] [address] [place] [address] Dr. Steffany Angel MONO # 0.5 103/ul Normal 0.3-0.8 [facility] Comment on above: Performed By: #### C BC #### [facility] [address] [place] [address] Dr. Steffany Angel Monocytes/100 WBC (Bld) 5.1 % Normal 1.7-12.0 [facility] Comment on above: Performed By: #### C BC #### [facility] [address] [place] [address] Dr. Steffany Angel NEUT # 7.0 103/ul Critically high 1.4-6.5 [facility] Comment on above: Performed By: #### C BC #### [facility] [address] [place] [address] Dr. Steffany Angel Neutrophils/100 WBC (Bld) 68.3 % Normal 43.0-75.0 [facility] Comment on above: Performed By: #### C BC #### [facility] [address] [place] [address] Dr. Steffany Angel Platelet mean volume (Bld) [Entitic vol] 10.1 fL Normal 9.5-13.5 [facility] Comment on above: Performed By: #### C BC #### [facility] [address] [address] [address] Steffany Angel PLT 295 103/ul Normal 150-450 [facility] Comment on above: Performed By: #### C BC #### [facility] [address] [address] [address] Steffany Angel RBC 4.31 106/ul Critically low 4.70-6.10 [facility] Comment on above: Performed By: #### C BC #### [facility] [address] [address] [address] Steffany Angel WBC 10.3 103/ul Normal 4.0-11.0 [facility] Comment on above: Performed By: #### C BC #### [facility] [address] [place] [address] ABD/PELV W CONon 02-05-20 CT ABD/PELV W CON EXAMINATION: CT ABD/PELV W CON HISTORY: GENERALIZED ABDOMINAL PAIN left lower quadrant pain nausea vomiting COMPARISON: None. TECHNIQUE: Multiple axial views CT abdomen pelvis with 80 mL Omnipaque 300 IV contrast. Coronal and sagittal reformats. Dose reduction techniques were achieved by using automated exposure control and/or adjustment of mA and/or kV according to patient size and/or use of iterative reconstruction technique. FINDINGS: Visualized lung bases and cardiac apex are unremarkable. Diffuse hepatic steatosis. Gallbladder, pancreas, spleen, adrenal glands, appendix, and other pelvic structures are unremarkable. 2 mm nonobstructing right mid renal stone. 5.9 x 3.5 x 5.2 cm irregular wedge-shaped hypodensity at the left mid to superior renal cortex (image 62 series 3). No radiopaque stones or hydronephrosis. No perinephric fluid collection. Mild circumferential urinary bladder wall thickening. Correlate with urinalysis for any cystitis. 4.8 cm transverse diameter of the prostate. Colonic diverticula without diverticulitis. Large amount of stool within the distal large bowel rectum. No evidence for small bowel obstruction, large ascites, or free air. Small hiatal hernia. No acute bony abnormality. IMPRESSION: 5.9 x 3.5 x 5.2 cm irregular wedge-shaped hypodensity at the left mid to superior renal cortex without radiopaque stones, perinephric fluid collection, or hydronephrosis. Differential diagnoses include renal infarct, focal pyelonephritis, versus less likely underlying renal cortical infiltrative neoplasm. Difficult to differentiate given its overlapping morphology. Further close clinical correlation/evaluation recommended. At least a short interval CT follow-up to ensure resolution to be considered. Mild circumferential urinary bladder wall thickening. Correlate with urinalysis for any cystitis. Colonic diverticula without diverticulitis. Electronically authenticated by: COURTNEY CASEY Date: 2022-02-04 00:39 Normal [facility] ER URINE PROFILEon 2 Bilirubin Ql (U) Negative Normal NEGATIVE [facility] Comment on above: Performed By: #### U MICRO, ERUR #### [facility] [address] [place] [address] Dr. Steffany Angel Clarity (U) CLEAR Normal CLEAR [facility] Comment on above: Performed By: #### U MICRO, ERUR #### [facility] [address] [place] [address] Dr. Steffany Angel Color (U) LT. YELLOW Normal YELLOW [facility] Comment on above: Performed By: #### U MICRO, ERUR #### [facility] [address] [place] [address] Dr. Steffany GARIBAYD A micrscopic examination will be performed if indicated. Normal [facility] Comment on above: Performed By: #### U MICRO, ERUR #### [facility] [address] [place] [address] Dr. Steffany Angel Glucose Ql (U) Negative Normal NEGATIVE [facility] Comment on above: Performed By: #### U MICRO, ERUR #### [facility] [address] [place] [address] Dr. Steffany Angel Hemoglobin Ql (U) SMALL Abnormal NEGATIVE [facility] Comment on above: Performed By: #### U MICRO, ERUR #### [facility] [address] [place] [address] Dr. Steffany Angel Ketones Ql (U) Negative Normal NEGATIVE [facility] Comment on above: Performed By: #### U MICRO, ERUR #### [facility] [address] [place] [address] Dr. Steffany Angel LEUKOCYTES Negative Normal NEGATIVE [facility] Comment on above: Performed By: #### U MICRO, ERUR #### [facility] [address] [address] [address] Steffany Angel Nitrite Ql (U) Negative Normal NEGATIVE [facility] Comment on above: Performed By: #### U MICRO, ERUR #### [facility] [address] [address] [address] Steffany Angel pH (U) 6.0 [pH] Normal 5-9 [facility] Comment on above: Performed By: #### U MICRO, ERUR #### [facility] [address] [place] [address] Dr. Setffany Angel SPEC GRAVITY 1.025 Normal 1.005-<=1.025 [facility] Comment on above: Performed By: #### U MICRO, ERUR #### [facility] [address] [address] [address] Steffany Angel UA PROTEIN Negative Normal NEGATIVE/ TRACE [facility] Comment on above: Performed By: #### U MICRO, ERUR #### [facility] [address] [place] [address] Dr. Steffany Angel UR MICRO IND INDICATED Normal [facility] Comment on above: Performed By: #### U MICRO, ERUR #### [facility] [address] [place] [address] Dr. Steffany Angel Urobilinogen Qn (U) 1.0 {Korey'U}/dL Normal 0.2 - 1.0 [facility] Comment on above: Performed By: #### U MICRO, ERUR #### [facility] [address] [place] [address] Dr. Steffany Angel LACTATE/LACTIC ACIDon 2021 Lactate [Moles/Vol] 1.0 mmol/L Normal 0.4-1.9 [facility] Comment on above: Performed By: #### L ACT #### [facility] [address] [place] [address] Dr. Steffany Angel LIPASEon 02-04-2022 Lipase [Catalytic activity/Vol] 161.0 U/L Normal 73.0-393.0 [facility] Comment on above: Performed By: #### L IPA, CMP #### [facility] [address] [place] [address] Dr. Steffany Angel PROF 14(COMP METB)on Albumin [Mass/Vol] 3.9 g/dL Normal 3.4-5.0 [facility] Comment on above: Performed By: #### L IPA, CMP #### [facility] [address] [place] [address] Dr. Steffany Angel Albumin/Globulin [Mass ratio] 1.0 {ratio} Normal [facility] Comment on above: Performed By: #### L IPA, CMP #### [facility] [address] [place] [address] Dr. Steffany Angel ALP [Catalytic activity/Vol] 133 U/L Critically high 46-116 [facility] Comment on above: Performed By: #### L IPA, CMP #### [facility] [address] [place] [address] Dr. Steffany Angel ALT [Catalytic activity/Vol] 104 U/L Critically high 16-63 [facility] Comment on above: Performed By: #### L IPA, CMP #### [facility] [address] [place] [address] Dr. Steffany Angel Anion gap [Moles/Vol] 14.5 mmol/L Normal [facility] Comment on above: Performed By: #### L IPA, CMP #### [facility] [address] [place] [address] Dr. Steffany Angel AST [Catalytic activity/Vol] 60 U/L Critically high 15-37 [facility] Comment on above: Performed By: #### L IPA, CMP #### [facility] [address] [place] [address] Dr. Steffany Angel Bilirubin [Mass/Vol] 0.3 mg/dL Normal 0.2-1.0 [facility] Comment on above: Performed By: #### L IPA, CMP #### [facility] [address] [place] [address] Dr. Steffany Angel Calcium [Mass/Vol] 9.0 mg/dL Normal 8.5-10.1 [facility] Comment on above: Performed By: #### L IPA, CMP #### [facility] [address] [place] [address] Dr. Steffany Angel Chloride [Moles/Vol] 103 mmol/L Normal 98-107 [facility] Comment on above: Performed By: #### L IPA, CMP #### [facility] [address] [place] [address] Dr. Steffany Angel CO2 [Moles/Vol] 24.4 mmol/L Normal 21.0-32.0 [facility] Comment on above: Performed By: #### L IPA, CMP #### [facility] [address] [place] [address] Dr. Steffany Angel Creatinine [Mass/Vol] 1.57 mg/dL Critically high 0.70-1.30 [facility] Comment on above: Performed By: #### L IPA, CMP #### [facility] [address] [place] [address] Dr. Steffany Angel EGFR-AF SERBIAN 56 mL/min/1.73m2 Critically low >=60 [facility] Comment on above: Performed By: #### L IPA, CMP #### [facility] [address] [place] [address] Dr. Steffany Angel EGFR-NON AF SERBIAN 46 mL/min/1.73m2 Critically low >=60 [facility] Comment on above: Performed By: #### L IPA, CMP #### [facility] [address] [place] [address] Dr. Steffany Angel Globulin (S) [Mass/Vol] 3.8 g/dL Normal [facility] Comment on above: Performed By: #### L IPA, CMP #### [facility] [address] [place] [address] Dr. Steffany Angel Glucose [Mass/Vol] 103 mg/dL Normal 74-106 [facility] Comment on above: Performed By: #### L IPA, CMP #### [facility] [address] [place] [address] Dr. Steffany Angel Potassium [Moles/Vol] 3.9 mmol/L Normal 3.5-5.1 [facility] Comment on above: Performed By: #### L IPA, CMP #### [facility] [address] [place] [address] Dr. Steffany Angel Protein [Mass/Vol] 7.7 g/dL Normal 6.4-8.2 [facility] Comment on above: Performed By: #### L IPA, CMP #### [facility] [address] [place] [address] Dr. Steffany Angel Sodium [Moles/Vol] 138 mmol/L Normal 136-145 [facility] Comment on above: Performed By: #### L IPA, CMP #### [facility] [address] [place] [address] Dr. Steffany Angel Urea nitrogen [Mass/Vol] 22.0 mg/dL Critically high 7.0-18.0 [facility] Comment on above: Performed By: #### L IPA, CMP #### [facility] [address] [place] [address] Dr. Steffany Angel Urea nitrogen/Creatini ne [Mass ratio] 14.0 mg/mg Normal [facility] Comment on above: Performed By: #### L IPA, CMP #### [facility] [address] [place] [address] Dr. Steffany Angel URINE MICROSCOPIC ONLYon BACTERIA NONE SEEN Normal NONE SEEN [facility] Comment on above: Performed By: #### U MICRO, ERUR #### [facility] [address] [place] [address] Dr. Steffany Angel Bacteria identified Cx Nom (U) NOT INDICATED Normal [facility] Comment on above: Performed By: #### U MICRO, ERUR #### [facility] [address] [place] [address] Dr. Steffany Angel CAST NONE SEEN Normal NONE SEEN [facility] Comment on above: Performed By: #### U MICRO, ERUR #### [facility] [address] [address] [address] Steffany Angel Crystals LM Nom (Urine sed) NONE SEEN Normal NONE SEEN [facility] Comment on above: Performed By: #### U MICRO, ERUR #### [facility] [address] [address] [address] Steffany Angel Epithelial cells LM Ql (Urine sed) RARE Normal NONE SEEN /RARE [facility] Comment on above: Performed By: #### U MICRO, ERUR #### [facility] [address] [address] [address] Steffany Angel MUCOUS NONE SEEN Normal NONE SEEN [facility] Comment on above: Performed By: #### U MICRO, ERUR #### [facility] [address] [place] [address] Dr. Steffany Angel RBC 0-2 Normal 0-2 [facility] Comment on above: Performed By: #### U MICRO, ERUR #### [facility] [address] [place] [address] Dr. Steffany Angel WBC 0-2 Abnormal NONE SEEN [facility] Comment on above: Performed By: #### U MICRO, ERUR #### [facility] [address] [place] [address] CHEST WO CONon 05-21-2021 CT CHEST WO CON EXAMINATION: CT CHES T WO CON HISTORY: Lung field abnormal , pulmonary nodules, emphysema COMPARISON: CT chest 05/20/2020, 05/29/2019 TECHNIQUE: Axial, Coronal, and Sagittal images were created without the administration of IV contrast material. Dose reduction techniques were achieved by using automated exposure control and/or adjustment of mA and/or kV according to patient size and/or use of iterative reconstruction technique. FINDINGS: LUNGS: Stable appearance of a few tiny nodules, largest is 3 mm. Stable minimal peripheral septal thickening/honeycombin g and minimal emphysematous changes. PLEURA: No mass, effusion, or pneumothorax. VASCULATURE: No abnormality. ABENA: No mass or adenopathy. MEDIASTINUM: No mass or adenopathy. CARDIAC: No enlargement or pericardial thickening. AORTA: No aneurysm or dissection. CHEST WALL: No mass or axillary adenopathy. BONES: No bone lesion or fracture. LIMITED ABDOMEN: No suspicious findings. Limited images of the upper abdomen. OTHER: Negative. IMPRESSION: 1. Stable appearance of the few punctate pulmonary nodules and mild chronic interstitial changes. Electronically authenticated by: KATY BAEZ Date: 2021-05-21 09:57 Normal [facility] MR knee RT wo conon 11-22-19 MR knee RT wo con [facility] [place] [address] [place] [address] MRI Report Signed Patient: Mariusz Chacon MR#: [id number] : 1970 Acct:[id number] Age/Sex: 48 / M ADM Date: 11/20/18 Loc: MR Room: Type: [facility] Attending Dr: Hari Ugarte MD Ordering Provider: Hari Ugarte MD Date of Service: 11/20/18 MR/MR knee RT wo con: M23.91 Copies to: Hari Ugarte MD MR knee RT wo con 11/20/2018 4:27 PM SIGNS AND SYMPTOMS: Right knee pain, swelling, decreasing range of motion, possible meniscal tear PROTOCOL: Axial T2 fat-sat, sagittal PD, sagittal T2 fat-sat, coronal T1, coronal T2 fat-sat, and coronal STIR COMPARISON: None FINDINGS: The quadriceps and patellar tendons are normal in signal. The patella is normal in position. There is extensive edema along the medial pole of the patella. There is partial thickness chondromalacia in the medial facet of the patellofemoral joint. There is mild edema along the medial patellar retinaculum. Correlation with any history of lateral dislocation is recommended. The anterior cruciate ligament is intact. The posterior cruciate ligament is intact. Chondral cartilage of the weightbearing joint spaces show full-thickness chondromalacia medially with relative preservation laterally. There is a nondisplaced tear of the posterior horn and body of the medial meniscus. The marrow signal of the femur, tibia, and fibula are within normal limits otherwise. There is increased signal intensity along the medial collateral ligament which may represent a grade 1 MCL sprain. The lateral collateral ligament is intact. The popliteus tendon is intact. Popliteal fibular ligament is intact. The musculature of the proximal calf and lower thigh remain grossly intact. There is a moderate joint effusion. There is a tiny Bland's cyst posteriorly measuring up to 8 mm in axial dimension. MR/MR knee RT wo con IMPRESSION: Relatively nondisplaced complex tear of the body and posterior horn of the medial meniscus. 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 Partial thickness chondromalacia along the medial facet of the patellofemoral joint with underlying subcortical edema. There is also edema along the medial pole the patella with edema involving the patellar retinaculum. This may indicate prior lateral dislocation of the patella. Findings suggesting grade 1 medial collateral ligament sprain. The medial collateral ligament and anterior cruciate ligaments are grossly intact however. Impression dictated by: Fredi Mauro M.D.11/21/2018 8:43 AM Dictation Location: [facility] Transcribed By: [facility] 11/21/18 0843 Dictated By: Fredi Mauro II, MD 11/21/18 0836 Signed By: 11/21/18 0843 Normal [facility] XR knee RT 2Von 11-02-2018 XR knee RT 2V [facility] [place] [address] [place] [address] XRay Report Signed Patient: Mariusz Chacon MR#: [id number] : 1970 Acct:[id number] Age/Sex: 48 / M ADM Date: 11/02/18 Loc: [facility] Room: Type: [facility] Attending Dr: Hari Ugarte MD Ordering Provider: Hari Ugarte MD Date of Service: 11/02/18 XR/XR knee RT 2V: Acute pain of right knee Copies to: Hari Ugarte MD 2 views right knee HISTORY: Twisting injury to right knee 3 weeks ago. Continued pain. Small suprapatellar effusion is present. No fracture or dislocation identified. No focal soft tissue abnormality seen. Patellar spurring is present. Well-corticated bone density is adjacent to the tibial tuberosity. XR/XR knee RT 2V IMPRESSION: No acute bony process. Small suprapatellar effusion. Impression dictated by: Angelic Washington M.D.11/02/2018 7:49 PM Dictation Location: [id number] Transcribed By: REJI 11/02/181948 Dictated By: Angelic Washington DO 11/02/181947 Signed By: 11/02/181948 [facility] Vital Signs Date Time Vital Sign Value Performing Clinician Mahamed elise 03-05-2022 09:08-0400 Blood Pressure Location Danielle Blackwell Jr. [facility] 03-05-2022 09:08-0400 Diastolic blood pressure 84 mm[Hg] Danielle Blackwell Jr. [facility] 03-05-2022 09:08-0400 Heart rate 74 /min Danielle Blackwell Jr. [facility] 03-05-2022 09:08-0400 Respiratory rate 16 /min Danielle Blackwell Jr. [facility] 03-05-2022 09:08-0400 Systolic blood pressure 138 mm[Hg] Danielle Blackwell Jr. [facility] Encounters Encounter Date Encounter Type Care Provider Facility Start: 07-12-2024 ambulatory Claudio Rapp Facility :[facility] Start: 09-15-2023 End: 09-15-2023 ambulatory Claudio Rapp Facility:[facility] Start: 07-15-2023 End: 07-15-2023 Lab Drop off Claudio Rapp [facility] Start: 07-15-2023 End: 07-15-2023 ambulatory Claudio Rapp Facility:[facility] Start: 06-30-2023 ambulatory Claudio Rapp Facility :[facility] [place] Start: 05-01-2022 End: 05-02-[address] ALEE WALDROP Facility: Start: 03-26-2022 End: 03-27-[address] DANIELLE BLACKWELL JR Facility: Start: 03-05-2022 End: 03-05-2022 Patient encounter procedure Danielle Blackwell Jr. [facility] Start: 02-04-2022 End: 02-04-[address] ANGELIC BURDEN Facility: Start: 05-19-2021 End: 05-20-2021 ambulatory PHILNESHA BERGER Facility: Start: 12-17-2018 End: 12-17-2018 Patient encounter procedure Alee Waldrop Facility:[facility] Start: 11-20-2018 End: 11-20-2018 Patient encounter procedure Hari Ugarte Facility:[facility] Start: 11-02-2018 End: 11-02-2018 Patient encounter procedure Hari Ugarte Facility:[facility] Procedures Date Procedure Procedure Detail Performing Clinician Start: 09-08-2008 Colonoscopy Danielle bower Jr. Operation on meniscu s of the knee Claudio Rapp Comment on above: right knee Immunizations Immunization Date Immunization Notes Care Provider Fa cility 12-12-2020 SARS-CoV-2 (COVID-19 ) mRNA BNT-162b2 [facility]ax [facility] 11-20-2020 SARS-CoV-2 (COVID-19 ) mRNA BNT-162b2 vax Claudio Rapp [facility] NEGATED: Highlighted row has not occurred!07-15-2023 influenza virus vaccine, unspecified formulation Claudio Rapp [facility] Payers Date Payer Category Payer Self-pay 1970 Unknown [id number] 2.16.84 [id number] 1970 Unknown [id number] 2.16.84 [id number] 1970 Unknown [id number] 2.16.84 [id number] 1970 Unknown [id number] 2.16.84 [id number] 1970 Unknown [id number] 2.16.8 [id number] 1970 Unknown [id number] 2.16.8 [id number] 1970 Unknown [id number] 2.16.8 [id number] 1970 Unknown [id number] 2.16.8 [id number] 1970 Unknown [id number] 2.16.8 [id number] 1961 Private Health Insurance [id number] Unknown [id number] 2.16.84 [id number] Unknown [id number] [id number] Unknown [id number] Social History Date Type Detail Facility Start: 03-05-2022 End: 07-15-2023 Tobacco smoking status Heavy tobacco smoker (finding) [facility] Sex Assigned At Male [facility] Tobacco smoking status Never [facility] Functional Status Date Assessment Result Facility 03-05-2022 Functional Status N/A [facility] Evaluation + Plan note 07-15-2023 Note Date & Type Note Facility 07-15-2023 [facility]23Comprehensive Metabolic Panel 07/15/23Lipid Panel 07/15/23PSA Screen, Total 07/15/23 [facility] Hospital Discharge instructions 03-05-2022 Note Date & Type Note Facility 03-05-2022 Hospital Discharg e instructions Patient Education 03/05/2022 09:30:22 Kidney Stones, [id number] Kidney Stones Kidney stones are rock-like masses that form inside of the kidneys. Kidneys are organs that make pee (urine). A kidney stone may move into other parts of the urinary tract, including: The tubes that connect the kidneys to the bladder (ureters). The bladder. The tube that carries urine out of the body (urethra). Kidney stones can cause very bad pain and can block the flow of pee. The stone usually leaves your body (passes) through your pee. You may need to have a doctor take out the stone. What are the causes? Kidney stones may be caused by: A condition in which certain glands make too much parathyroid hormone (primary hyperparathyroidism). A buildup of a type of crystals in the bladder made of a chemical called uric acid. The body makes uric acid when you eat certain foods. Narrowing (stricture) of one or both of the ureters. A kidney blockage that you were born with. Past surgery on the kidney or the ureters, such as gastric bypass surgery. What increases the risk? You are more likely to develop this condition if: You have had a kidney stone in the past. You have a family history of kidney stones. You do not drink enough water. You eat a diet that is high in protein, salt (sodium), or sugar. You are overweight or very overweight (obese). What are the signs or symptoms? Symptoms of a kidney stone may include: Pain in the side of the belly, right below the ribs (flank pain). Pain usually spreads (radiates) to the groin. Needing to pee often or right away (urgently). Pain when going pee (urinating). Blood in your pee (hematuria). Feeling like you may vomit (nauseous). Vomiting. Fever and chills. How is this treated? Treatment depends on the size, location, and makeup of the kidney stones. The stones will often pass out of the body through peeing. You may need to: Drink more fluid to help pass the stone. In some cases, you may be given fluids through an IV tube put into one of your veins at the hospital. Take medicine for pain. Make changes in your diet to help keep kidney stones from coming back. Sometimes, medical procedures are needed to remove a kidney stone. This may involve: A procedure to break up kidney stones using a beam of light (laser) or shock waves. Surgery to remove the kidney stones. Follow these instructions at home: Medicines Take [id number] and prescription medicines only as told by your doctor. Ask your doctor if the medicine prescribed to you requires you to avoid driving or using heavy machinery. Eating and drinking Drink enough fluid to keep your pee pale yellow. You may be told to drink at least 8 10 glasses of water each day. This will help you pass the stone. If told by your doctor, change your diet. This may include: ?Limiting how much salt you eat. ?Eating more fruits and vegetables. ?Limiting how much meat, poultry, fish, and eggs you eat. Follow instructions from your doctor about eating or drinking restrictions. General instructions Collect pee samples as told by your doctor. You may need to collect a pee sample: ?24 hours after a stone comes out. ?8 12 weeks after a stone comes out, and every 6 12 months after that. Strain your pee every time you pee (urinate), for as long as told. Use the strainer that your doctor recommends. Do not throw out the stone. Keep it so that it can be tested by your doctor. Keep all follow-up visits as told by your doctor. This is important. You may need follow-up tests. How is this prevented? To prevent another kidney stone: Drink enough fluid to keep your pee pale yellow. This is the best way to prevent kidney stones. Eat healthy foods. Avoid certain foods as told by your doctor. You may be told to eat less protein. Stay at a healthy weight. Where to find more information National Kidney Foundation (NKF): www.kidney.org [employer] (UCF): www.urologyhealth.org Contact a doctor if: You have pain that gets worse or does not get better with medicine. Get help right away if: You have a fever or chills. You get very bad pain. You get new pain in your belly (abdomen). You pass out (faint). You cannot pee. Summary Kidney stones are rock-like masses that form inside of the kidneys. Kidney stones can cause very bad pain and can block the flow of pee. The stones will often pass out of the body through peeing. Drink enough fluid to keep your pee pale yellow. This information is not intended to replace advice given to you by your health care provider. Make sure you discuss any questions you have with your health care provider. Document Released: 02/10/2009 Document Revised: 01/11/2020 Document Reviewed: 01/11/2020 [employer] Patient Education 2020 [employer]. Follow Up Care 02/05/2022 13:50:21 With:Rishi Wyatt MD, [facility] Address: [facility] [address], [place] [phone] [phone] When:06/05/2022 Comments:CT of abdomen and pelvis [facility] Evaluation + Plan note Note Date & Type Note Facility Evaluation + Plan note No data available for this section [facility] Hospital Discharge instructions Note Date & Type Note Facility Hospital Discharge instructions No data available for this section [facility] Progress note Note Date & Type Note Facility Progress note No data available for this section [facility] Summary Purpose Family History No Family History Records FoundNo Family History Records Found No data available for this section No Family History Records Found Advance Directives No Advanced Directives Records FoundNo Advanced Directives Records FoundNo Advanced Directives Records Found Additional Source Comments (unrecognized sect ion and content) No Status Records FoundNo Status Records FoundNo Status Records Found INFORMATION SOURCE (unrecogn ized section and content) DATE CREATED AUTHOR 12/18/2018 [facility] DATE CREATED AUTHOR AUTHOR'S ORGANIZ ATION 05/06/2022 [facility] DATE CREATED AUTHOR AUTHOR'S ORGANIZ ATION 06/03/2024 Nilson Pablo [facility] Care Team (unrecognized sect ion and content) Personnel Name: ALEE WALDROP MD Address: [address] [place] [id number] [place] Personnel Name: Claudio Rapp MD Address: Address: [facility]. Jonathan Beckwith[address] FOR RECORDS PERTAINING TO PATIENTS WHO ARE OR HAVE BEEN ENROLLED IN A CHEMICAL DEPENDENCY/SUBSTANCEABUSE PROGRAM, SOME INFORMATION MAY BE OMITTED. This clinical summary was aggregated from multiple sources. Caution should be exercised in using it in the provision of clinical care. This summary normalizes information from multiple sources, and as a consequence, information in this document may materially change the coding, format and clinical context of patient data. In addition, data may be omitted in some cases. CLINICAL DECISIONS SHOULD BE BASED ON THE PRIMARY CLINICAL RECORDS. [facility]. provides no warranty or guarantee of the accuracy or completeness of information in this document.
== END 2024-07-10 08:04 | disposition home or self-care (01) ==
LOC: CT 08:03
PROVIDERS: Visit Provider Internal Medicine
DX: F17.210 Nicotine dependence, cigarettes, uncomplicated (principal); Z12.2 Encounter for screening for malignant neoplasm of respiratory organs
CPT/HCPCS: 71271

== ENCOUNTER 2024-08-16 13:33 | Emergency (ER) | payer BC, SELFPAY ==
[2024-08-16] VITALS (18 sets, daily range): BP systolic 118–179; BP diastolic 67–88; PULSE 60–72; TEMP 36.4; O2SAT 96–99; BMI 35.9
--- NOTE | 2024-08-16 13:43 | ECG_ITS ---
The [facility] Test Date: 2024-08-16 Pat Name: ALEXANDR CHACON Department: Room: - Gender: Male [employer]: : 1970 Requested By: [id number] Order Number: [id number] Reading MD: BIN LEYVA Measurements Intervals [place] Rate: 65 P: 46 [place]: 204 QRS: 52 QRSD: 98 T: 53 QT: 394 QTc: 406 Interpretive Statements 1100 Sinus rhythm 9110 normal ECG Compared to ECG 12/09/2018 13:33:00 No significant changes Electronically Signed On 08-16-2024 22:52:10 EST by BIN LEYVA
--- NOTE | 2024-08-16 13:45 | ED_ITS ---
<Statement entered by Nahid Fernandez MD - 08/17/24 12:28> Chart was sent to my inbox for administrative and group management purposes. I was the attending physicians working during the patients hospital course. The patient was seen and managed independently by the MLP. I did not personally see or evaluate this patient, nor was I involved in the patient medical decision making process or plans of care. Pt was dispositioned by the MLP with complete independence. I was available for consultation should the MLP request during this patients ED stay. This documentation has been reviewed and approved. HPI - Chest Pain General Chief Complaint: Chest Pain Stated Complaint: chest pain Time Seen by Provider: 08/16/24 13:34 Source: patient Mode of arrival: walk-in Limitations: no limitations History of Present Illness HPI narrative: Patient is a 54-year-old male who presents to the emergency department for evaluation of chest pain that has been present intermittently for the last grisel ral days, he states the pain went away but returned this morning and has been present since then. He reports pain in the left lateral chest radiating to the shoulder. Pain is not worse with movement or deep breathing. He has not had any rashes or color change. He states he had a stress test about 5 years ago, possibly longer that was normal at that time. His father had coronary artery disease in his 80s, however the patient has no personal history of coronary artery disease or CVA. He takes blood pressure medication and is a half a pack per day cigarette smoker. He denies any recent fevers, cough, congestion. He does not feel short of breath. No nausea or vomiting. No jaw pain or arm pain. Risk Factors Coronary artery disease risk factors: smoking history and hypertension Related Data Home Medications ?Medication ?Instructions ?Recorded ?Confirmed albuterol sulfate 90 mcg/actuation inhalation 08/16/24 aerosol inhaler budesonide 160 mcg-glycopyr 9 inh inhalation 08/16/24 mcg-formot 4.8 mcg/actuation HFA inhaler (Breztri Aerosphere) bupropion HCl 150 mg 24 hr tablet, mg PO 08/16/24 extended release diclofenac sodium 75 mg mg PO 08/16/24 tablet,delayed release esomeprazole magnesium 40 mg mg 08/16/24 capsule,delayed release metoprolol tartrate 50 mg tablet mg 08/16/24 Previous Rx's ?Medication ?Instructions ?Recorded methylprednisolone 4 mg tablets in See Rx Instructions .Route 08/16/24 a dose pack (Medrol (Gadiel)) .COMPLEX #21 ea Allergies Allergy/AdvReac Type Severity Reaction Status Date / Time No Known Drug Allergies Allergy Verified 08/16/24 13:36 Review of Systems ROS Constitutional Denies: fever or chills Ears, nose, mouth, and throat Denies: throat pain or nasal congestion Cardiovascular Reports: chest pain Respiratory Denies: shortness of breath or cough Gastrointestinal Denies: abdominal pain, nausea or vomiting Musculoskeletal Denies: back pain or neck pain Integumentary/Breast Denies: rash Neurological Denies: numbness in extremities or weakness in extremities Hematologic/Lymphatic Denies: easy bruising or easy bleeding PFSH PFSH Social History Little interest or pleasure in doing things: not at all Feeling down, depressed, or hopeless: not at all Exam Narrative Exam Narrative: Gen.: Awake, alert, in no distress Head: Normocephalic, atraumatic ENT: Moist mucous membranes Respiratory: No respiratory distress, lungs clear bilaterally; no rashes or color change of the chest wall noted. Cardio: Regular rate and rhythm Extremities: Moves extremities equally Psych: Normal mood and affect Neuro: No focal neuro deficit Skin: Warm, dry, intact Constitutional Vital Signs, click to edit/add: Last Vital Signs Temp 97.6 F 08/16/24 13:36 Pulse 60 08/16/24 16:01 Resp 19 08/16/24 16:01 BP 122/72 08/16/24 16:01 Pulse Ox 97 08/16/24 16:01 O2 Del Method Room Air 08/16/24 13:36 Course Vital Signs Vital signs: Vital Signs Temperature 97.6 F 08/16/24 13:36 Pulse Rate 70 08/16/24 13:36 Respiratory Rate 18 08/16/24 13:36 Blood Pressure 179/88 H 08/16/24 13:36 Pulse Oximetry 99 08/16/24 13:36 Oxygen Delivery Method Room Air 08/16/24 13:36 Temperature 97.6 F 08/16/24 13:36 Pulse Rate 60 08/16/24 16:01 Respiratory Rate 19 08/16/24 16:01 Blood Pressure 122/72 08/16/24 16:01 Pulse Oximetry 97 08/16/24 16:01 Oxygen Delivery Method Room Air 08/16/24 13:36 MDM - Chest Pain MDM Narrative Medical decision making narrative: Patient was treated with aspirin and 1 sublingual nitroglycerin with no significant change in his pain. He was given additional IV Toradol with almost complete resolution of chest pain. EKG, laboratory studies including D-dimer within normal limits and repeat troponin is also within normal limits. Patient with a heart score of 3, stable vital signs and resting comfortably on reevaluation. He will follow-up closely with his primary care provider and return to the emergency department if symptoms change or worsen. SUPERVISED APC VISIT, PHYSICIAN ATTESTATION: Based on the medical record the care appears appropriate. ? Medical Records Data Attestation: I reviewed the patient's medical records. Lab Data Attestation: I reviewed the patient's lab results. Labs: Lab Results 08/16/24 08/16/24 Range/Units 13:48 15:31 WBC 10.4 (4.0-11.0) 10^3/uL RBC 4.71 (4.70-6.10) 10^6/uL Hgb 14.8 (14.0-18.0) g/dL Hct 43.6 (42.0-54.0) % MCV 92.6 (80.0-94.0) fL MCH 31.4 (25.9-34.0) pg MCHC 33.9 (29.9-35.2) g/dL RDW 13.7 (11.0-15.0) % Plt Count 304 (150-450) 10^3/uL MPV 10.0 (9.5-13.5) fL Neut % (Auto) 61.7 (43.0-75.0) % Lymph % (Auto) 31.2 (20.5-60.0) % [place] % (Auto) 4.3 (1.7-12.0) % Eos % (Auto) 1.7 (0.9-7.0) % Baso % (Auto) 0.8 (0.2-2.0) % Neut # (Auto) 6.4 (1.4-6.5) 10^3/uL Lymph # (Auto) 3.3 (1.2-3.8) 10^3/uL [place] # (Auto) 0.5 (0.3-0.8) 10^3/uL Eos # (Auto) 0.2 (0.0-0.7) 10^3/uL Baso # (Auto) 0.1 (0.0-0.1) 10^3/uL Abs Immat Gran (auto) 0.03 (0.00-0.03) 10^3/uL Imm/Tot Granulo (auto) 0.3 (0.0-0.5) % PT 10.9 (9.0-11.6) sec INR 1.03 D-Dimer 0.39 (<=0.59) mg/L FEU Sodium 141 (136-145) mmol/L Potassium 3.7 (3.5-5.1) mmol/L Chloride 107 (98-107) mmol/L Carbon Dioxide 24.8 (21.0-32.0) mmol/L Anion Gap 12.9 BUN 24.0 H (7.0-18.0) mg/dL Creatinine 1.35 H (0.70-1.30) mg/dL Est GFR ( Amer) >60 (>=60 mL/min/1.73m^2) Est GFR (Non-Af Amer) 55 L (>=60 mL/min/1.73m^2) BUN/Creatinine Ratio 17.8 Glucose 120 H (74-106) mg/dL Calcium 8.7 (8.5-10.1) mg/dL Total Bilirubin 0.4 (0.2-1.0) mg/dL AST 30 (15-37) U/L ALT 54 (16-63) U/L Alkaline Phosphatase 120 H (46-116) U/L Troponin I High Sens 4.0 <4.0 L (4.0-76.1) pg/mL NT-Pro-B Natriuret Pep 16.0 (<=900.0) pg/mL Total Protein 7.2 (6.4-8.2) g/dL Albumin 3.6 (3.4-5.0) g/dL Globulin 3.6 g/dL Albumin/Globulin Ratio 1.0 Lipase 69.0 (16.0-77.0) U/L Imaging Data Chest x-ray: Attestation: I have reviewed the pertinent imaging results. Radiologist's impression: ITS Impressions Chest X-Ray 08/16/24 14:28 IMPRESSION: No acute heart or lung disease identified. Electronically authenticated by: SADIA BENAVIDES Date: 08/16/2024 15:02 ECG Data Attestation: I personally reviewed and interpreted this ECG as follows: (Normal sinus rhythm at a rate of 65, no acute ST elevation or ectopy. EKG reviewed by attending physician) Heart Score History: Slightly/Non-Suspicious ECG: Normal Age: >45-<65 years Risk Factors: >3 Risk Factors/ HX of CAD:2 Troponin: <Normal Limit Total Heart Score Recommendations & Risks:: 3 Discharge Plan Discharge Chief Complaint: Chest Pain Clinical Impression: Chest pain Patient Disposition: Home, Self-Care Time of Disposition Decision: 16:10 Condition: Good Prescriptions / Home Meds: New methylprednisolone [Medrol (Gadiel)] 4 mg tablets,dose pack See Rx Instructions .ROUTE .COMPLEX Qty: 21 0RF Rx Instructions: Taper as directed No Action esomeprazole magnesium 40 mg capsule,delayed release(DR/EC) metoprolol tartrate 50 mg tablet diclofenac sodium 75 mg tablet,delayed release (DR/EC) PO albuterol sulfate 90 mcg/actuation HFA aerosol inhaler INHALATION bupropion HCl 150 mg tablet extended release 24 hr PO Breztri Aerosphere 160-9-4.8 mcg/actuation HFA aerosol inhaler INHALATION Print Language: Indonesian Instructions: Chest Pain (ED) Referrals: [facility] [Primary Care Provider] - 1 week
[2024-08-16] MEDS: ASPIRIN 81 MG TAB.CHEW 162 MG PO (13:57)
[2024-08-16] MEDS: NITROGLYCERIN 0.4 MG BOTTLE SL (13:58)
[2024-08-16 14:02] LABS: Basophils Absolute Auto 0.1 10^3/uL (0.0-0.1); Basophils Percent Auto 0.8 % (0.2-2.0); Eosinophils Absolute Auto 0.2 10^3/uL (0.0-0.7); Eosinophils Percent Auto 1.7 % (0.9-7.0); Hematocrit 43.6 % (42.0-54.0); Hemoglobin 14.8 g/dL (14.0-18.0); Immature Granulocytes Abs Auto 0.03 10^3/uL (0.00-0.03); Immature Granulocytes Pct Auto 0.3 % (0.0-0.5); Lymphocytes Absolute Auto 3.3 10^3/uL (1.2-3.8); Lymphocytes Percent Auto 31.2 % (20.5-60.0); Mean Corpuscular HGB Conc 33.9 g/dL (29.9-35.2); Mean Corpuscular Hemoglobin 31.4 pg (25.9-34.0); Mean Corpuscular Volume 92.6 fL (80.0-94.0); Monocytes Absolute Auto 0.5 10^3/uL (0.3-0.8); Monocytes Percent Auto 4.3 % (1.7-12.0); Neutrophils Absolute Auto 6.4 10^3/uL (1.4-6.5); Neutrophils Percent Auto 61.7 % (43.0-75.0); Platelet Count 304 10^3/uL (150-450); Red Blood Count 4.71 10^6/uL (4.70-6.10); Red Cell Distribution Width 13.7 % (11.0-15.0); White Blood Count 10.4 10^3/uL (4.0-11.0)
[2024-08-16] MEDS: KETOROLAC TROMETHAMINE 30 MG/ML VIAL IVP (14:17)
[2024-08-16 14:24] LABS: Alanine Aminotransferase 54 U/L (16-63); Albumin Level 3.6 g/dL (3.4-5.0); Alkaline Phosphatase 120 U/L (46-116); Anion Gap 12.9; Aspartate Amino Transferase 30 U/L (15-37); BUN Creatinine Ratio 17.8; Bilirubin Total 0.4 mg/dL (0.2-1.0); Calcium 8.7 mg/dL (8.5-10.1); Carbon Dioxide 24.8 mmol/L (21.0-32.0); Chloride 107 mmol/L (98-107); Estimated GFR (African America >60 (>=60 mL/min/1.73m^2); Estimated GFR (Non-African Ame 55 (>=60 mL/min/1.73m^2); Globulin 3.6 g/dL; Glucose 120 mg/dL (74-106); Potassium 3.7 mmol/L (3.5-5.1); Sodium 141 mmol/L (136-145); Total Protein 7.2 g/dL (6.4-8.2)
[2024-08-16 14:25] LABS: D Dimer 0.39 mg/L FEU (<=0.59); INR 1.03; Prothrombin Time 10.9 sec (9.0-11.6)
--- NOTE | 2024-08-16 14:28 | XR_ITS ---
The [address] [address] Patient Name: ALEXANDR CHACON MRN: [id number] date: 1970 Sex: M Assigned Patient Location: ER Current Patient Location: ER Accession/Order Number: [id number] Exam Date: 08/16/2024 14:35 Report Date: 08/16/2024 15:02 At the request of: JESSI ENGLAND Procedure: XR chest 1V EXAM: XR chest 1V HISTORY: . Chest pain . COMPARISON: None. TECHNIQUE: Single view of the chest FINDINGS: Heart and vascularity are unremarkable. Lungs are free of focal infiltrates. Grossly no acute bony abnormality is appreciated. EKG leads overlie the chest. XR/XR chest 1V IMPRESSION: No acute heart or lung disease identified. Electronically authenticated by: SADIA BENAVIDES Date: 08/16/2024 15:02
[2024-08-16 15:59] LABS: Troponin I High Sensitivity <4.0 pg/mL (4.0-76.1)
== END 2024-08-16 16:18 | disposition home or self-care (01) ==
PROVIDERS: Physician Assistant; Emergency Provider Emergency Medicine; PCP Family Medicine
DX: R07.9 Chest pain, unspecified (principal); F17.210 Nicotine dependence, cigarettes, uncomplicated
CPT/HCPCS: 36415; 71045; 80053; 83690; 83880; 84484; 85025; 85378; 85610; 93005; 96374; 99285; J1885